=== PATIENT | male | born 1950 | race Caucasian/White ===

== ENCOUNTER 2025-08-03 09:24 | Emergency (ER) | payer MEDICARE, SELFPAY ==
--- NOTE | 2025-08-03 09:36 | ED_ITS ---
HPI - General Adult General Chief complaint: Urogenital-Male Stated complaint: Kidney Pain Source: patient, RN notes reviewed and old records reviewed Mode of arrival: ambulatory Limitations: no limitations History of Present Illness HPI narrative: 75-year-old male presents to the [facility] with concerns for urinary symptoms. No abdominal pain or back pain. States that he has had some leakage with urination, no burning. Concerns for UTI. States that he feels a little weaker than normal just not right. Related Data Home Medications ?Medication ?Instructions ?Recorded ?Confirmed ?Last Taken ?Type carvedilol 12.5 mg tablet mg 08/03/25 Unknown History levothyroxine 150 mcg tablet mcg 08/03/25 Unknown His tory lisinopril 10 mg tablet mg 08/03/25 Unknown History metformin 500 mg tablet,extended mg PO 08/03/25 Unkno wn History release 24 hr simvastatin 40 mg tablet mg 08/03/25 Unknown History tirzepatide 15 mg/0.5 mL mg subcut 08/03/25 Unknown History subcutaneous pen injector (Mounjaro) Allergies Allergy/AdvReac Type Severity Reaction Status Date / Time No Known Allergies Allergy Verified 08/03/25 09:50 Review of Systems Review of Systems: All systems reviewed & are unremarkable except as noted in HPI and below Constitutional: Constitutional: Reports no additional constitutional complaints ENT: Reports system reviewed and no additional complaints, except as documented Cardiovascular: Cardiovascular: Reports no additional cardiovascular complaints, Denies chest pain and Denies dyspnea Respiratory: Respiratory: Reports no additional respiratory complaints, Denies chest congestion, Denies cough and Denies dyspnea Genitourinary: Genitourinary: Reports as per HPI Musculoskeletal: Musculoskeletal: Reports no additional musculoskeletal complaints Integumentary/Breasts: Skin/Breast: Reports system reviewed and no additional complaints, except as docu PMFSH Comments At the time of my signature, I reviewed and agree with the nursing past medical, surgical, social, and family history. There is no relevant family history pertinent to the patient complaint. Exam Const: General: cooperative, healthy appearing, comfortable, no acute distress, well developed, alert and well nourished Nutritional Appearance: well nourished Orientation/consciousness: patient oriented x3 Limitations: no limitations HENMT: Head: normal to inspection Mouth: Yes Normal oral and palatal mucosa present, Yes lip normal and Yes tongue normal Eyes: General: appearance normal, both eyes and all related structures Alignment and Position: alignment normal Neck: Neck: normal visual inspection, full ROM, no lymphadenopathy and no meningeal signs Chest: Chest palpation & inspection: normal inspection of the chest Resp: Effort & Inspection: normal respiratory effort and able to speak in complete sentences Auscultation: clear to auscultation bilaterally, no crackles, no rales, no rhonchi and no wheezes Cardio: Rate: regular rate GI: GI Palp: No abdominal tenderness : General: Yes no CVA tenderness Skin: General skin exam: normal color and no rashes or lesions noted Neuro: General: patient oriented x3, gait normal, moves all extremities and no meningeal signs Cognition (Neuro): normal cognition Speech: normal speech Gait exam (Neuro): Normal gait present Extrem: General: normal to inspection, full ROM, capillary refill normal and normal gait Psych: Appearance: grossly normal and well kempt Mental Status: mental status grossly normal Speech and movement: Normal speech and movement present and Clear speech present Affect: normal affect Attitude: cooperative Course Course Level of Care: Express Care Visit Vital Signs Vital signs: Vital Signs Temperature 98.0 F 08/03/25 09:39 Pulse Rate 118 H 08/03/25 09:39 Respiratory Rate 18 08/03/25 09:39 Blood Pressure 106/76 08/03/25 09:39 Pulse Oximetry 97 08/03/25 09:39 Oxygen Delivery Room Air 08/03/25 09:39 Temperature 98.0 F 08/03/25 09:39 Pulse Rate 118 H 08/03/25 09:39 Respiratory Rate 18 08/03/25 09:39 Blood Pressure 106/76 08/03/25 09:39 Pulse Oximetry 97 08/03/25 09:39 Oxygen Delivery Room Air 08/03/25 09:39 Reviewed Medical Decision Making MDM Narrative Medical decision making narrative: Patient sitting in exam room. Patient is nontoxic, vitals stable. Presents with . Urine shows leukocytes, will culture, cover with Augmentin. D iscussed in detail signs and symptoms to proceed to the emergency room which patient and verbalized understanding Discharge instructions reviewed with patient, as well as provided in writing pe r nursing staff. The instructions also include specific and strict return/GO TO THE ER as well as f/u information. All questions have been answered, and the patient deny any further questions with discharge and discharge plan. Some parts of this dictation were generated by voice recognition software and may contain typographical and/or grammatical inaccuracies. Differential Diagnosis Differential Diagnosis: UTI, prostate issues, kidney issues Medical Records Medical records reviewed: Yes I reviewed the external patient's medical records. Vital Signs Vital Signs: Vital Signs Temperature 98.0 F 08/03/25 09:39 Pulse Rate 118 H 08/03/25 09:39 Respiratory Rate 18 08/03/25 09:39 Blood Pressure 106/76 08/03/25 09:39 Pulse Oximetry 97 08/03/25 09:39 Oxygen Delivery Room Air 08/03/25 09:39 Temperature 98.0 F 08/03/25 09:39 Pulse Rate 118 H 08/03/25 09:39 Respiratory Rate 18 08/03/25 09:39 Blood Pressure 106/76 08/03/25 09:39 Pulse Oximetry 97 08/03/25 09:39 Oxygen Delivery Room Air 08/03/25 09:39 Reviewed Lab Data Lab results reviewed: Yes I reviewed the patient's lab results. Labs: Lab Results 08/03/25 Range/Units 09:49 POC Urine Color Yellow POC Urine Clarity Clear POC Urine pH 5.5 POC Ur Specif [place] 1.030 POC Urine Protein 2+ (Negative) POC Ur Glucose (UA) Negative (Negative) POC Urine Ketones 1+ (Negative) POC Urine Blood 1+ (Negative) POC Urine Nitrite Negative (Negative) POC Urine Bilirubin 1+ (Negative) POC Urine Urobilinogen 0.2 POC U Leukocyte Esteras 1+ (Negative) Reviewed Critical Care Time Critical Care Time Critical Care Time: No Discharge Plan Discharge Clinical Impression: Urinary tract infection Patient Disposition: Home Condition: Stable Instructions: Antibiotic Form, Urinary Tract Infection in Men (ED) Additional Instructions: Increased water intake Take Tylenol as needed for pain Take antibiotic as prescribed Today your urine dip showed a probability of a UTI. You have been prescribed an antibiotic. Your urine will be sent to our lab for a culture. If at that time a bacteria grows that is not covered by the antibiotic prescribed you will be no tified. Follow-up with primary care For new or worsening symptoms go directly to the emergency room Patient Language: Khmer Prescriptions: New amoxicillin-pot clavulanate 875-125 mg tablet 1 tablet PO Q12H Qty: 10 0RF No Action carvedilol 12.5 mg tablet simvastatin 40 mg tablet lisinopril 10 mg tablet levothyroxine 150 mcg tablet metformin 500 mg tablet extended release 24 hr PO Mounjaro 15 mg/0.5 mL pen injector SUBCUT Follow-up/Referrals: PHYSICIAN,CHIEF UNDERWRITER [Primary Care Provider, Internal Medicine] Time of Disposition: 09:50
[2025-08-03 09:39] VITALS: BP 106/76; PULSE 118; RESP 18; TEMP 36.7; O2SAT 97
[2025-08-03 09:52] LABS: EDUAAPPEAR Clear; EDUABILI 1+ (Negative); EDUABLOOD 1+ (Negative); EDUACOLOR1 Yellow; EDUAGLUCOSE Negative (Negative); EDUAKETONE 1+ (Negative); EDUALEUKO 1+ (Negative); EDUANITRATE Negative (Negative); EDUAPH 5.5; EDUAPROTEIN 2+ (Negative); EDUASPGRAVITY 1.030; EDUAUROBILI 0.2
== END 2025-08-03 09:53 | disposition home or self-care (01) ==
PROVIDERS: Emergency Provider Nurse Practitioner
DX: N39.0 Urinary tract infection, site not specified (principal); I10 Essential (primary) hypertension; E78.00 Pure hypercholesterolemia, unspecified; I42.2 Other hypertrophic cardiomyopathy; Z96.653 Presence of artificial knee joint, bilateral
CPT/HCPCS: 81003; 87086; 87186; 99203; G0463